=== PATIENT | female | born 1935 | race African-American/Black ===

== ENCOUNTER 2020-02-13 10:46 | Emergency (ER) | payer MEDICARE, BC ==
[2020-02-13 11:28] LABS: #Lymphocytes 1.5 thou/uL (1.20-3.40); #Monocytes 0.6 thou/uL (0.11-0.59); %Basophils 0.8 % (0.0-1.0); %Eosinophils 0.7 % (0.0-10.0); %Lymphocytes 28.3 % (21.0-51.0); %Monocytes 11.3 % (0.0-10.0); %Neutrophils 58.8 % (42.0-75.0); Hemoglobin 10.1 g/dL (12.0-16.0); Mean Corpuscular HGB CONC 31.1 g/dL (32.0-36.0); Mean Corpuscular Hemoglobin 29.7 pg (27.0-31.0); Mean Corpuscular Volume 95.5 fL (78.0-98.0); Mean Platelet Volume 6.8 fL (7.4-10.4); Platelet Count 153 thou/uL (130-400); RBC Distribution Width 11.8 % (11.5-14.5); Red Blood Cell (RBC) Count 3.38 mill/uL (4.20-5.40); White Blood Cell (WBC) Count 5.1 thou/uL (4.8-10.8)
[2020-02-13 11:46] LABS: ALT (SGPT) 15 U/L (8-55); AST (SGOT) 18 U/L (5-34); Albumin 3.9 g/dL (3.4-4.8); Alkaline Phosphatase 59 U/L (40-110); Anion Gap 14 mmol/L (10-20); BUN (Urea Nitrogen) 12 mg/dL (9.8-20.1); Bilirubin, Total 0.8 mg/dL (0.2-1.2); Calc. Creatinine Clearance 0 mL/min (70-130); Calcium 9.9 mg/dL (7.8-10.44); Carbon Dioxide 27 mmol/L (23-31); Chloride 103 mmol/L (98-107); Estimated GFR-MDRD 78; Globulin 3.3 g/dL (2.4-3.5); Glucose 108 mg/dL (83-110); Potassium 3.7 mmol/L (3.5-5.1); Protein, Total 7.2 g/dL (6.0-8.3); Sodium 140 mmol/L (136-145)
[2020-02-13 11:58] LABS: Lipase Less than 4 U/L (8-78)
--- NOTE | 2020-02-13 12:50 | CT ---
EXAM: CT ABDOMEN AND PELVIS HISTORY: Right-sided mass. Pain. COMPARISON: None. Procedure: Multiple contiguous axial images were obtained and a CT of the abdomen and pelvis with IV contrast. C oronal reformats were performed. FINDINGS: Lower Chest: Scar/atelectasis in the lung bases Vessels: Normal caliber aorta. There is atherosclerosis. No periaortic fat stranding Heart: Cardiomegaly. No significant pericardial fluid Abdomen: Portal vein:Patent Gallbladder: No calcified gallstones. Normal caliber wall. Liver: Hypodensity in the hepatic dome may represent a subcapsular cyst measuring 0.5 cm. No enhancin g hepatic masses Pancreas: No enhancing masses. Main pancreatic duct has a normal caliber measuring 0.2 cm. Spleen: within normal limits. Adrenals: within normal limits. Kidneys: Symmetric enhancement. No obstructive uropathy. Hypodensities in the left renal cortex are t oo small to characterize but may represent cortical cysts. There is a associated calcification suggesting a possibly complex left renal cortical cyst measuring approximately 1 cm. The adjacent hyp odensity measures 1.2 cm. There is a hypodensity in the lower pole of the left kidney measuring 1 cm. Bilaterally no obstructive uropathy Peritoneum: No ascites or free air, no fluid collection. Bowel: Limited evaluation by the lack of oral contrast. Mucosal prominence of the stomach is nonspeci fic. Consider endoscopy. Multiple normal caliber small bowel loops. Normal ileocecal junction. Normal caliber appendix. Diverticulosis, without evidence of diverticulitis. Fecal material throughou t nondistended, nondilated colon Mesentery and Retroperitoneum: No enlarged mesenteric or retroperitoneal lymph nodes. Abdominal Wall: There is a hyperdense lesion involving the anterior abdominal wall which is superfici al to the peritoneum and is confined to the subcutaneous soft tissues. There may be minimal peripheral vascularity. Lesion measures 4.7 cm anterior-posterior x 7.7 cm mediolateral x 8.1 cm cran iocaudal. Attenuation coefficient is 49 Hounsfield units. Pelvis: Reproductive Organs: Heterogeneous, enlarged uterus and adnexal structures may represent multiple [place] leiomyomas. Normal appearing uterus is difficult to appreciate. Multiple hyperdense lesions are also identified which may represent noncalcified leiomyomas. [employer] hyperdense lesion cece sures 2.8 x 2.2 cm and 3.3 x 3.5 cm. Pelvis: No mass, lymphadenopathy, free air or free fluid. Bladder: within normal limits. Bones: No lytic or blastic lesions in the osseous structures. Mild compression fracture at L4. IMPRESSION: 1. Hyperdense mass involving the anterior subcutaneous fat. There may be some intrinsic enhancement. There is minimal peripheral vascularity. 2. Differential considerations include a soft tissue sarcoma versus hematoma. 3. Recommendation: Outpatient ultrasound with follow-up possible ultrasound-guided biopsy. 4. Additional findings in the uterus and kidneys as above. Better interrogation with an abdomen MRI a nd pelvic MRI can be performed nonemergently. Transcribed Date/Time: 02/13/2020 1:05 PM
[2020-02-13] MEDS ORDERED: Iopamidol 370 76% 100 ML VIAL ONE (15:23)
== END 2020-02-13 14:03 | disposition home or self-care (01) ==
LOC: EDBD → BURERS 10:46
DX: R19.05 Periumbilic swelling, mass or lump (principal)
CPT/HCPCS: 74177; 80053; 83605; 83690; 85025; Q9967